=== PATIENT | female | born 1990 | race African-American/Black ===

== ENCOUNTER 2017-05-10 14:59 | Emergency (ER) | payer MEDICARE ==
[~2017-05-10] VITALS: Ht 165.1 cm; Wt 57.2 kg
[2017-05-10 15:18] VITALS: BP_SYST 96
[2017-05-10] MEDS ORDERED: IBUPROFEN 800 MG TABLET PO ONE (15:45)
[2017-05-10] MEDS ORDERED: DIPH-TET-PERTUS Vaccine 0.5 ML VIAL (ADACEL) IM ONE (15:45)
[2017-05-10 16:08] VITALS: BP_SYST 110
== END 2017-05-10 16:08 | disposition home or self-care (01) ==
LOC: SED 14:59
DX: S51.812A Laceration without foreign body of left forearm, initial encounter (principal); W26.0XXA Contact with knife, initial encounter; Y93.89 Activity, other specified; Y92.89 Other specified places as the place of occurrence of the external cause; Y99.8 Other external cause status; Z86.59 Personal history of other mental and behavioral disorders
CPT/HCPCS: 81025; 90715; 99284